=== PATIENT | female | born 1940 | race Caucasian/White ===

== ENCOUNTER 2016-12-23 17:15 | Inpatient (IN) | payer MEDICARE, OTHER ==
[~2016-12-23] VITALS: Ht 163.8 cm; Wt 64.6 kg
--- NOTE | ~2016-12-23 | HP ---
PATIENT'S NAME: CECILE [facility] AGE: 76 Y [address] ROOM: G6302 [place], [place] [address] LOCATION: GPCU ADMIT DATE: 12/23/2016 History & Physical DISCHARGE DATE: FAMILY PHYSICIAN: Adebayo Boggs PA-C ATTENDING PHYSICIAN: DORETHA MALLOY V DATE OF SERVICE: CHIEF COMPLAINT: Left-sided chest pain. HISTORY OF PRESENT ILLNESS: The patient is a 76-year-old female, who came into the ER today with complaints of approximately 2 weeks of left-sided sharp chest pain. The pain is nonexertional, not relieved with medicines or rest, but does get better with a heat pack. The patient admits to increased dyspnea on exertion, but this has been developing over the course of last year. She also has lost approximately 20 pounds in the last year. She also has been getting worked up for back pain as well as syncope associated with postural changes of her head. She has had an MRI of brain and total spine in [place], which we do not have and apparently has a compression fracture and a questionable cervical radiculopathy. In the ER, the patient was noted to be hypertensive with blood pressures of systolic 180, started nitroglycerin drip. The remainder of the workup was negative. REVIEW OF SYSTEMS: Review of systems is also positive for alternating diarrhea and constipation. All other systems have been reviewed and negative aside from the pertinent positives mentioned above. PAST MEDICAL HISTORY: As reported by the patient is of stress incontinence. She denies any cardiac, pulmonary, or endocrine medical history. CURRENT MEDICATIONS: 1. Trospium. 2. Tramadol. 3. Alendronate. SOCIAL HISTORY: Negative for any history of ongoing toxic habits. She resides at home with PATIENT'S NAME: [facility] AGE: 76 Y [address] ROOM: G[address] [place], [place] [address] LOCATION: GPCU ADMIT DATE: 12/23/2016 History & Physical DISCHARGE DATE: FAMILY PHYSICIAN: Adebayo Boggs PA-C ATTENDING PHYSICIAN: DORETHA MALLOY V her . FAMILY HISTORY: Reviewed and is noncontributory due to her advanced age. PHYSICAL EXAMINATION: VITAL SIGNS: At this point, blood pressure is 180/77, saturating 98% on room air, heart rate is 79, afebrile, respirations of 16. GENERAL: Appears elderly frail female, in no acute distress. NEUROLOGIC: Nonfocal. EYES: Show pupils are equal and reactive to light. LYMPHATIC: Shows no cervical lymphadenopathy. ENDOCRINE: Shows no thyromegaly. LUNGS: Clear to auscultation. HEART: Rate is regular with no appreciable murmurs, gallops, or rubs. THORAX: Does reveal tenderness to palpation of her left anterior hemithorax. GI: Abdomen is soft, nontender, nondistended. : Reveals no costovertebral angle tenderness. VASCULAR: Shows 2+ pedal pulses. MUSCULOSKELETAL: Unremarkable. PSYCHIATRIC: Reveals appropriate mood, cognition, and affect. SKIN: Warm and dry. LABORATORY DATA: Studies performed in the ER are significant for an EKG, which shows sinus rhythm at 77 beats per minute with slightly peaked R-waves in leads V1 and V2. Lab studies are significant for creatinine of 1.3. Two sets of negative cardiac enzymes. Unremarkable CBC. Negative D-dimer. ASSESSMENT AND PLAN: This is a 76-year-old female, who will be admitted with: 1. Noncardiac chest pain: I believe she might have some costochondritis. We will treat her with very gentle doses of naproxen and a lidocaine patch. Given the fact that she is elderly and female and has not had a cardiac workup, we will get a 2-dimensional echocardiogram given her reported dyspnea on exertion and a stress test given that she has never had one to eliminate the cardiac etiology as being responsible for her presentation. 2. Accelerated hypertension: We will start the patient on metoprolol. I will discontinue her nitroglycerin as she is having considerable amount of headaches. If need be, we might have to add an additional agent, though the patient has not had hypertension in the past. 3. Neurologic postural syncope: The patient is getting worked up for this as an outpatient, but we will consider an inpatient workup. PATIENT'S NAME: RAFITA HUBER [facility] AGE: 76 Y [address] ROOM: [address] [place], [place] [address] [facility] ADMIT DATE: 12/23/2016 History & Physical DISCHARGE DATE: FAMILY PHYSICIAN: Adebayo Boggs PA-C ATTENDING PHYSICIAN: DORETHA MALLOY V Additional management will depend on clinical course. Time dedicated to this patient's encounter is 35 minutes. MD HARSH TALLEY/christofer /[id number] D: [id number] T: [id number] HISTORY & PHYSICAL
--- NOTE | ~2016-12-23 | CON ---
[facility] 76 Y [address] ROOM: [place] [address] LOCATION: GPCU ADMIT DATE: 12/25/2016 Consultation DISCHARGE DATE: FAMILY PHYSICIAN: Adebayo Boggs PA-C ATTENDING PHYSICIAN: DORETHA MALLOY V DATE OF CONSULTATION: 12/24/2016 REFERRING PHYSICIAN: QING LAL MD NEUROLOGY CONSULTATION NOTE CHIEF COMPLAINT: Thoracic back pain,and acute T8 compression fracture. HISTORY OF PRESENT ILLNESS: The patient is a 76-year-old female patient, who was admitted to the Hospitalist last night with a sharp left-sided chest pain. I met the patient in the PCU unit. I gathered the history from the patient herself. The patient indicated that her pain started about 2 to 3 weeks ago. She denied any history of trauma prior to the onset of the pain. She localized the pain to the mid/lower thoracic region. She indicated that she also feels pain along the left side of her chest and all the way around to the epigastric region. Because of the pain, the patient was admitted to the hospital to rule out coronary artery disease. She was investigated for that and nothing was found. The patient had an MRI of her spine done on 12/16/2016 in [place] and that showed evidence of an acute T8 compression fracture. The patient denied numbness in her lower extremities. She reported numbness in her hands especially at night. She also reported occipital headaches. She denied changes in her bladder and bowel functions. She denied weight loss, loss of appetite, fever, or chills. The patient had issues with low back pain for many years. She denied experiencing similar pain in the past. PAST MEDICAL HISTORY: Stress incontinence. Otherwise, the past medical history is noncontributory to the patient's presentation. REVIEW OF SYSTEMS: All points of the review of systems were asked about. Pertinent positives were mentioned in the HPI. MEDICATIONS: Listed in the patient's chart. ALLERGIES: LISTED IN THE PATIENT'S CHART. [facility] 76 Y [address] ROOM: [place] [address] LOCATION: GPCU ADMIT DATE: 12/25/2016 Consultation DISCHARGE DATE: FAMILY PHYSICIAN: Adebayo Boggs PA-C ATTENDING PHYSICIAN: DORETHA MALLOY V SOCIAL HISTORY: She denies smoking and alcohol drinking. FAMILY HISTORY: Reviewed and is noncontributory to the patient's presentation. PHYSICAL EXAMINATION: GENERAL: The patient is cooperative and pleasant. HEENT: Head; atraumatic. Pupils are equal and reactive to light. NECK: No tenderness to palpation. Neck range of motion is full and painless. BACK: No obvious deformity. She has moderate tenderness to palpation at T8- T9 junction. RESPIRATORY: She is not in any respiratory distress. CARDIOVASCULAR: She has strong pulses in the upper and lower extremities. MUSCULOSKELETAL: The hips range of motion is painless bilaterally. MOUTH AND THROAT: No mucosal lesions. LYMPHATIC: No cervical lymphadenopathy. GAIT: Not done. NEUROLOGIC: She is alert and oriented to time, place, and person. Cranial nerves examination is grossly normal. Motor and sensory examination in the upper and lower extremities was normal. She had positive Cherry on the right hand. No evidence of clonus. Deep tendon reflexes were slightly brisk in the upper and lower extremities. IMAGING DATA: Investigations: 1. Thoracic spine MRI done on 12/16/2016 at [facility]. I personally reviewed the images. The imaging showed evidence of acute T8 compression fracture. No evidence of spinal cord compression or stenosis. 2. Cervical spine MRI done on December 16 at [facility]. I personally reviewed the imaging. The imaging showed a diffuse degenerative joint disease throughout the cervical spine especially at C4- C5, C5-C6 levels. She has mild cervical stenosis at those two levels. The upper cuts of the MRI showed evidence of possibly right internal carotid artery aneurysm. 3. Lumbar spine MRI. I personally reviewed the MRI that was done on December 16. It showed maintained lumbar lordosis. It showed evidence of multilevel degenerative joint disease especially at L4-L5, and L5-S1 levels. It also showed L4-L5, L5-S1 facet arthropathies. It also showed right L5 foraminal stenosis. IMPRESSION AND PLAN: A 76-year-old female patient who is admitted under the Hospitalist with PATIENT'S NAME: RAFITA HUBER [facility] AGE: 76 Y [address] ROOM: [place] [address] LOCATION: GPCU ADMIT DATE: 12/25/2016 Consultation DISCHARGE DATE: FAMILY PHYSICIAN: Adebayo Boggs PA-C ATTENDING PHYSICIAN: DORETHA MALLOY V [id number] lower thoracic back pain. Her imaging showed evidence of acute T8 compression fracture. The patient's daily functioning is significantly limited due to pain. She is unable to walk as before because of pain. She had an MRI of her spine done on December 16 and that confirmed the fracture. The MRI of her cervical spine also showed suspicious right internal carotid artery aneurysm. Plan: 1. For the T8 compression fracture, I recommended proceeding with T8 kyphoplasty to try to control her pain and relieve her symptoms. I briefly discussed the procedure. I clearly indicated that it will be done by Interventional Radiology. I scheduled the procedure on 12/28/2016. 2. For the possible right internal carotid artery aneurysm, I recommended getting a formal CT angiogram of the brain to better assess that. I will review the imaging and discussed the findings with the patient. 3. Flexeril 10 mg p.o. every 8 hours as needed. 4. Keep the systolic blood pressure less than 150. I discussed the findings of the imaging with the patient and explained the findings to her. I then discussed the different treatment options for the T8 compression fracture including continuing medical treatment versus proceeding with kyphoplasty. I recommended kyphoplasty to the patient. The patient was interested in proceeding with the procedure. The procedure is scheduled on 12/28/2016. I also discussed the issue of the possible right internal carotid artery aneurysm. I clearly indicated that further imaging is required to better assess that. I also recommended better controlling the blood pressure. It was pleasure taking care of this patient and thanks for having us involved. MD LOLITA QUINONEZ/christofer /[id number] CC: LASHELL Martinez MD Dr Oladeji d: 12/25/16 1223 t: 12/26/16 1244, CONSULTATION REPORT
--- NOTE | ~2016-12-23 | DS ---
PATIENT'S NAME: RAFITA HUBER [facility] AGE: 76 Y [address] ROOM: [address] [address] LOCATION: GPCU ADMIT DATE: 12/25/2016 Discharge Summary DISCHARGE DATE: 12/25/2016 FAMILY PHYSICIAN: Adebayo Boggs PA-C ATTENDING PHYSICIAN: Gagandeep Joy V DATE OF DISCHARGE/TRANSFER TO [facility]: December 25, 2016. PRIMARY DIAGNOSES: 1. Thoracic T8 compression fracture with radicular pain. 2. Left-sided chest radicular pain. 3. Right IC aneurysm. 4. Essential hypertension. LABORATORY DATA: Cardiac enzymes 3 sets less than 0.040. WBC on admission was 4.2. H and H on admission was 10.5, prior to transfer was 10.3/30.7. Sodium on admission was 138, prior to discharge 140. Creatinine on admission was 1.3, prior to discharge was 1.1. CO2 was stable throughout the hospital stay at 27. Potassium was 4.2 on admission, prior to transfer was 4.0. Liver function test was within normal limit, was also stable throughout the hospital stay. ESR was 58. INR 1.0. UA shows leukocytes 25, nitrite negative, wbc's 5 to 10, and bacteria negative. Micro, none was indicated. Echocardiogram showed ejection fraction of 55%, left ventricle is normal in size, left atrium is mildly dilated, mild tricuspid regurgitation, PA pressure of 46. Nuclear stress test reported as small distal anteroseptal moderate fixed defect most consistent with soft tissue attenuation, normal wall motion. RADIOLOGY: Chest x-ray showed normal chest. CTA of the head showed aneurysm of the supraclinoid right ICA. HOSPITAL COURSE: For history of present illness, please take a look at the H and P, which was done by Dr. Joy. The patient was admitted to Progressive Care Unit for a presumptive atypical chest pain, however, after further history was obtained from the patient and we obtained old records which included MRI of the neck and lumbar which was done 1 week prior to the patient's admission here at [facility], it was revealed on the MRI report that the patient had an acute T8 fracture with surrounding edema. So, line of thought was probably the patient's left-sided chest pain may be secondary to radicular pain. On the first day of admission, the patient did get her stress test done, which was essentially negative except for the attenuation it showed and after I discussed case with Dr. Joy, he recommended if the patient's chest pain persisted that the patient may benefit from a coronary angiogram to just evaluate her. Though, at this point in time, we thought likely the patient's left-sided chest pain was secondary to her T8 compression fracture. Following the result of the compression PATIENT'S NAME: RAFITA HUEBR [facility] AGE: 76 Y [address] ROOM: [address] [place], [place] [address] [facility]: 12/25/2016 Discharge Summary DISCHARGE DATE: 12/25/2016 FAMILY PHYSICIAN: Adebayo Boggs PA-C ATTENDING PHYSICIAN: Gagandeep Joy, Dr. Navarrete, the spine surgeon, was called to evaluate the patient; and after he reviewed the images of the cervical MRI and the lumbar, he observed that the patient may also likely have an aneurysm and so we went ahead to do a CTA of the head and neck, which did confirm the right IC aneurysm. Prior to this result being obtained, plan was to keep the patient's systolic blood pressure less than 150, which was achieved. After Dr. Navarrete reviewed the results of the CTA of the head and neck, he decided to go ahead and touch base with the neurosurgeon at [facility] for possible transfer and he took care of the transfer and discussed the case with a receiving doctor and the patient was subsequently transferred to [facility]. By the next day of the hospital stay, the patient's left-sided chest pain had resolved. MEDICATIONS ON TRANSFER: Included: 1. Norvasc 2.5 mg p.o. q.h.s., new medication. 2. Cefazolin. 3. Nystatin to breast. 4. Oxycodone 5 mg q.6 hours p.o. p.r.n. 5. Chlorthalidone, new medication, 25 mg p.o. daily. 6. Flexeril 10 mg q.8 hours p.o. p.r.n. 7. IV hydralazine 10 mg q.2 hours p.r.n. 8. Morphine 0.5 mg q.2 hours IV p.r.n. 9. Magnesium hydroxide 30 mL p.o. daily p.r.n. 10. MiraLax 17 grams p.o. daily p.r.n. 11. Colace 100 mg b.i.d. p.o. p.r.n. 12. Tramadol 50 mg q.4 hours p.o. p.r.n. 13. Vitamin B12, 500 mcg p.o. daily. 14. Metoprolol 25 mg b.i.d. p.o. MD MELCHOR COREA/christofer /[id number] d: 12/26/165 t: 01/02/172052, DISCHARGE SUMMARY
--- NOTE | ~2016-12-23 | ECHO ---
Transthoracic Echocardiography Report (TTE) Demographics Patient Name RAFITA HUBER Date of Study 12/24/2016 Patient Number [id number] Visit Number [id number] Date of 1940 Room Number G6302 Gender Female Number Age 76 year(s) Referring Ambrose CLEMENTS Contact Worker Elizabeth Chowdary Physician Rufino Faith RVT, MD Physician Interpreting Leni Dang Sample Maker Original Physician MD Supervising Ordering Rufino Tillman MD/MLP Physician MD Nurse Stress Molder Apprentice Conclusions Contractility Score Summary Normal Left Ventricular contractility was noted. Summary The estimated left ventricular ejection fraction is 55% with normal WM and wall thickness.The left ventricle is normal in size . The left atrium is mildly dilated. Moderate mitral regurgitation by color Doppler. There is trivial aortic regurgitation by color Doppler. Increased RA pressures. Mild tricuspid regurgitation by color Doppler. There is moderate pulmonary hypertension. The pulmonary pressure (RVSP) is 46 mmHg. [place]. Procedure Type of Study TTE procedure:2D Echocardiogram, M-Mode, Doppler , Color Doppler. Procedure Date Date: 12/24/2016 Start: 06:53 AM Study Location: Inpatient Portable Technical Quality: Adequate visualization Indications:Chest pain and Dyspnea. Appropriate Use Criteria: 9 Patient Status: Routine HR: 62 bpm BP: 137/64 mmHg M-Mode/2D Measurements LV Diastolic Dimension: 4.56 cm LV Systolic Dimension: 3.22 cm LV Septum Diastolic: 0.84 cm LV PW Diastolic: 0.94 cm AO Root Dimension: 2.6 cm Cardiac Output: 3.44 l/min AV Cusp Separation: 1.8 cm RV Diastolic Dimension: 2.01 cm LA volume: 61 ml LVOT: 1.9 cm RV Base: 3.67 cm LVOT VTI: 19.6 cm RV Mid: 2.61 cm LV Stroke volume: 55.54 ml TAPSE: 2.5 cm TDI-S': 11.1 cm/s Doppler Measurements AV Peak Velocity: 1.17 m/s MV Peak E-Wave: 0.69 m/s AV Peak Gradient: 5.48 mmHg MV Peak A-Wave: 0.98 m/s AV Mean Gradient: 3 mmHg MV E/A Ratio: 0.71 LVOT Peak Velocity: 0.72 m/s MV P1/2t: 66 msec TR Gradient:37.95 mmHg PV Peak Velocity: 0.72 m/s Estimated RAP:8 mmHg PV Peak Gradient: 2.04 mmHg Estimated RVSP: 46 mmHg Estimated PASP: 45.95 mmHg E' Septal Velocity: 0.05 m/s A' Septal Velocity: 0.11 m/s E' Lateral Velocity: 0.06 m/s A' Lateral Velocity: 0.09 m/s Findings Left Ventricle The left ventricle is normal in size,EF,WM and wall thickness. Right Ventricle Normal right ventricle structure and function. Left Atrium The left atrium is mildly dilated. Right Atrium Normal right atrial size. Dilated IVC measuring 2.07 cm with poor inspiratory collapse consistent with elevated RA pressure. Mitral Valve Mild thickening of the mitral valve leaflets. Moderate mitral regurgitation by color Doppler. Aortic Valve The aortic valve is mildly sclerotic. There is trivial aortic regurgitation by color Doppler. Tricuspid Valve Normal tricuspid valve structure and function. Mild tricuspid regurgitation by color Doppler. There is moderate pulmonary hypertension. The pulmonary pressure (RVSP) is 46 mmHg. Pulmonic Valve Normal pulmonic valve structure and function. Mild pulmonic valve regurgitation by color Doppler. Pericardial Effusion No evidence of pericardial effusion. Miscellaneous Visualized portions of the aortic root and ascending aorta appear normal in size. Pleural Effusion No evidence of pleural effusion. Contractility Score LV regional wall motion:(0-Non visualized 1-Normal 2-Hypokinesis 3-Akinesis 4-Dyskinesis 5-Aneurysm) Signature dtt: Laurence Farrar dtd: 12/24/16 0653 Physician Self Edit
--- NOTE | ~2016-12-23 | ESTC ---
Cardiac Perfusion Imaging Demographics Patient Name CECILE Moeller Gender Female Patient Number [id number] Race Visit Number [id number] Ethnicity Corporate ID Room Number G6302 Accession Number [id number] Height 65 inches Date of 1940 Weight 141 pounds MD Dev CLEMENTS Interpreting Leni Dang Date of study 12/24/2016 Physician MD Supervising /AMBER DAVIS Technologist Cesar Nunez Ordering Physician Stress Cristian Ahumada guitar repair technician RDCS, RVT Stress ECG Reading Guerita Corcoran APRN Nurse Caleb Knight RN Physician Procedure Procedure Type: Nuclear Stress Test:Pharmacological, Cardiolite Stress Test Procedure Start time: 12/24/2016 11:00 Indications: Chest pain. Risk Factors The patient risk factors include:family history of premature CAD. Conclusions Summary Small distal anteroseptal moderate fixed defect most consistent with soft tissue attenuation. LVEF:70%. Normal WM. Stress Protocols Resting ECG Normal sinus rhythm. Pre-stress physical exam: Patient assessed by Linda BRANHAM prior to testing. Chest - CTA Cardio - RRR, S1, S2 Predicted HR: 144 bpm HR response: Appropriate BP response: Appropriate Reason for termination:Infusion complete ECG Findings No ECG changes suggestive of ischemia. Arrhythmias No rhythm abnormality. Symptoms Nausea. Complications Procedure complication: None. Stress Interpretation Appropriate hemodynamic response to Lexiscan. No significant ST-T wave changes with Lexiscan. ECG portion is negative for ischemia by diagnostic criteria. Will correlate with nuclear images. Imaging Results High risk findings Summed scores - Summed stress score: 12 - Summed rest score: 2 - Summed difference score: 10 Stress ejection Ejection fraction:69 % EDV :85 ml ESV :26 ml Stroke volume :59 ml LV mass :120 gr LV size:Normal Normal LV function Imaging Protocols Rest Stress Isotope:Tc99m Sestamibi IV Isotope: Tc99m Sestamibi IV Isotope dose:10.1 mCi Isotope dose:30.2 mCi Date:12/24/2016 08:34 Date:12/24/2016 11:07 Technique: SPECT Technique: Gated Supine SPECT Supine Scan Time:45-60 minutes post Scan Time:45-60 minutes post injection injection Procedure Medications - Regadenoson (Lexiscan) 0.4 mg IV over 10-15 sec. I.V. 0.4 mg. Medical History Admission Data Admission date: 12/23/2016 Admission Time: 19:58 Hospital Status: Inpatient. Signatures dtt: Laurence Farrar dtd: 12/24/16 [facility] Physician Self Edit
--- NOTE | ~2016-12-23 | ER ---
PATIENT'S NAME: RAFITA HUBER [facility] AGE: 76 Y [address] ROOM: [address] [address] [facility] AD[facility]: 12/23/2016 ER/Outpatient Report DISCHARGE DATE: FAMILY PHYSICIAN: Adebayo Boggs PA-C ATTENDING PHYSICIAN: DORETHA MALLOY V Time of Arrival: 1715 hours. Time of Evaluation: 1720 hours. HISTORY OF PRESENT ILLNESS: This is a 76-year-old female, who presents to the ER via ambulance to our emergency room. The patient was evaluated in [facility] by TYREE Figueroa. She is having complaints of chest pain for the past 2 weeks' time. When she was there, he did do an EKG and thought she had some ischemic changes, so he wanted her transferred here for further care. The patient states that she has had no recent illness. No fever or chills. She states that her pain is always there, but the intensity waxes and wanes. She states that it does not make her feel nauseated. She has had no shortness of breath. She does have some chest wall tenderness as well with this. The patient denies any cardiac history. No vomiting or diarrhea. The patient is allergic to aspirin, so they did not give her any aspirin but they did give her a nitroglycerin at the clinic and then the ambulance did repeat that which did improve her pain. Due to shift change, I will be turning this patient's care over to Jocelyne [place]. Please see her dictation for the rest of the report. ANA GONG PA-C FOR MD JOHNNY SANTORO/christofer /[id number] d: 12/24/16654 t: 12/29/16653, OUTPATIENT REPORT
--- NOTE | ~2016-12-23 | ER ---
PATIENT'S NAME: RAFITA HUBER [facility] AGE: 76 Y [address] ROOM: [place] [address] LOCATION: GPCU ADMIT DATE: 12/23/2016 ER/Outpatient Report DISCHARGE DATE: FAMILY PHYSICIAN: Adebayo Boggs PA-C ATTENDING PHYSICIAN: DORETHA MALLOY V TIME SEEN: 1800 hours. CHIEF COMPLAINT: Chest pain. HISTORY OF PRESENT ILLNESS: I actually assumed care of this patient about 45 minutes after her arrival in the emergency room. She is here for complaints of chest pain that she has had for about 2 weeks. She describes it as a spot on the top side of her left breast with it radiating around to the area below her scapula on the left. She states this pain has been constant for the past two weeks. At times it is worse than others but not necessarily with any activity. At the time of the exam, it did increase with deep breath and with any palpation at all in that area. She describes the pain as being sharp in nature. She has had no trauma. She was seen in [place] by TYREE Figueroa and he recommended she come down for cardiac work up. She was transferred by ambulance. PAST MEDICAL HISTORY: Arthritis, bladder control problem. PAST SURGICAL HISTORY: Noncontributory. ALLERGIES: SULFA AND ASPIRIN. HOME MEDICATIONS: Include: 1. Tramadol. The patient reports she very rarely takes tramadol; however, she has been taking it pretty regularly in the last two weeks due to the pain in her chest. 2. Trospium chloride one tablet daily. 3. Alendronate 70 mg one per week. 4. She also takes B12 500 mcg. REVIEW OF SYSTEMS: GENERAL: No change in her weight. No fevers, chills, or sweats. She does state that she has been somewhat fatigued of late. PATIENT'S NAME: RAFITA HUBER [facility] AGE: 76 Y [address] ROOM: [place] [address] LOCATION: GPCU ADMIT DATE: 12/23/2016 ER/Outpatient Report DISCHARGE DATE: FAMILY PHYSICIAN: Adebayo Boggs PA-C ATTENDING PHYSICIAN: DORETHA MALLOY V HEENT: No headache. No vision changes. No recent congestion or sore throat. CARDIOVASCULAR: Chest pain as previously described and shortness of breath. At times she feels that she is short of breath as it is painful for her to take a deep breath. GASTROINTESTINAL: No nausea, vomiting, diarrhea, or constipation. : No urgency, frequency, or dysuria. NEURO: No confusion, weakness, or dizziness. MUSCULOSKELETAL: No myalgias or arthralgias. HEMATOLOGY: No new bruising or bleeding. SKIN: She denies any rashes or lesions. ENDOCRINE: No complaints. PSYCH: No complaints. PHYSICAL EXAMINATION: VITAL SIGNS: Pulse of 80, respiratory rate 16, temperature 98.4, blood pressure 185/81. GENERAL APPEARANCE: She is alert, pink, warm, and dry. No acute distress. HEENT: Head, normocephalic. Eyes, PERRL. Ears not examined. Nose not examined. Throat not examined. NECK: Supple with no lymphadenopathy. LUNGS: Clear to anterior and posterior auscultation without any wheezes or crackles. Respiratory effort is normal. HEART: Rate is regular. Normal S1, S2. No murmurs noted. CHEST: Tender to palpation at approximately the 4th rib, superior border of the left breast radiating around to the 4th and 5th rib area in the axilla. She says this pain at times hurts subscapular; however, there is no tenderness to palpation in that area. There are two small red lesions noted in this area on the breast. They do not at this time appear to be herpetic. The patient states she has been using a heating pad to her chest. These do not appear to be dwyer from a heating pad either. ABDOMEN: Soft, nontender, and nondistended. Bowel sounds in all 4 quadrants. No masses or organomegaly. EXTREMITIES: No peripheral edema. She has full range of motion of all extremities. Cap refill is less than 2 seconds. NEUROLOGICAL: Cranial nerves 2 through 12 are intact. Motor strength 5/5 bilaterally. LABORATORY DATA: White count of 4.2, hemoglobin 10.5, hematocrit 31.3, platelet count 223. INR 1.0. Sodium 138, potassium 4.2, glucose 91, BUN 23, creatinine 1.3, magnesium 2.0. CK-MB is less than 0.5. Troponin I is less than 0.04. D-dimer 0.33. EKG without any evidence of acute process. IMPRESSION/ASSESSMENT: Left-sided chest pain. Rule out myocardial infarction. Rule out shingles. PATIENT'S NAME: RAFITA HUBER [facility] AGE: 76 Y [address] ROOM: [id number] [place], [place] [address] [facility] ADMIT DATE: 12/23/2016 ER/Outpatient Report DISCHARGE DATE: FAMILY PHYSICIAN: Adebayo Boggs PA-C ATTENDING PHYSICIAN: DORETHA MALLOY V Possible costochondritis. EMERGENCY DEPARTMENT COURSE: The patient was given a sublingual nitroglycerin early in her visit and the pain was somewhat better shortly after that. Therefore, nitroglycerin drip was started and after a period of time, her pain escalated. So it was increased from 5 mcg to 10 mcg. The dose did not help the pain. She stated the pain was becoming worse and she also had a headache. Therefore, the nitroglycerin was decreased again and she was given fentanyl for her chest pain. As mentioned in HPI, her pain remained present at all times and did escalate at times and then decrease again. DISPOSITION/PLAN: Dr. Garcia was contacted and will admit the patient for rule out [place], observation. This case was discussed with Dr. Victoria as well. In addition, [place] CLEMENTS saw the patient initially when she came to the emergency room. VICTORIA GARCIA APRN FOR LENORA VICTORIA MD DP/cindil /[id number] d: 12/24/16 0526 t: 01/13/17 0701, OUTPATIENT REPORT
[2016-12-23 17:50] LABS: BASOPHIL % 0.5 %; EOSINOPHIL # 0.1 K/uL (0.0-0.5); EOSINOPHIL % 3.3 %; HEMATOCRIT 31.3 % (33.0-46.0); HEMOGLOBIN 10.5 g/dL (10.0-15.0); IMMATURE GRANULOCYTE % 0.5 %; LYMPHOCYTE % 48.1 %; MCH 34.7 pg (27.0-34.0); MCHC 33.5 gm/dL (32.0-36.5); MCV 103.3 fl (83.0-98.0); MONOCYTE # 0.4 K/uL (0.0-1.0); MONOCYTE % 10.2 %; MPV 10.5 fl (9.4-12.4); NEUTROPHIL # (ANC) 1.6 K/uL (1.8-7.8); NEUTROPHIL % 37.4 %; NRBC % 0 /100WBC (0-0.00); PLATELET COUNT 223 K/uL (150-450); RBC 3.03 M/uL (3.50-5.50); RDW-CV 12.8 % (11.9-14.6); WBC 4.2 K/uL (4.0-11.0)
[2016-12-23 17:56] LABS: PROTIME 10.3 SECONDS (9.6-11.1); PTT 27 SECONDS (25-32)
[2016-12-23 18:10] LABS: ALBUMIN 3.9 gm/dL (3.5-5.0); ALK PHOS 86 IU/L (33-138); ALT 12 IU/L (12-78); ANION GAP 13.2 (10.0-19.0); AST 18 IU/L (10-40); BLOOD UREA NITROGEN 23 mg/dL (6-24); CALCIUM 8.9 mg/dL (8.5-10.5); CHLORIDE 102 mMol/L (96-110); CO2 27 mMol/L (22-32); CPK 31 IU/L (21-215); CREATININE 1.3 mg/dL (0.5-1.1); ESTIMATED GFR (MDRD EQUATION) 40; POTASSIUM 4.2 mMol/L (3.7-5.1); SODIUM 138 mMol/L (135-145); TOTAL BILIRUBIN 0.4 mg/dL (0.0-1.5); TOTAL PROTEIN 7.6 g/dL (6.0-8.4)
[2016-12-23 20:01] LABS: CPK 35 IU/L (21-215)
--- NOTE | 2016-12-23 21:28 | NUR ---
76 Y/O FEMALE ADMITTED FOR CHEST PAIN RULE OUT TX. C/O CHEST PAIN FOR THE PAST 2 WEEKS UNDER LEFT BREAST THAT IS A SHARP SQUEEZING PRESSURE NOT R/T ACTIVITY. ALSO C/O SOB DURING THE PAST 2 WEEKS WELL. ALLERGIES - SULFA & ASPIRIN MEDICAL HISTORY - CLAUSTROPHOBIC, ARTHRITIS, OSTEOPORSIS, DEPRESSION & ANXIETY, CHRONIC LOW BACK PAIN AND NECK PAIN, [place] WITH BILAT HEARING AIDS. PT STATES SHE HAS HAD MANY SYNCOPAL EPISODES AND FALLS OFTEN, STATES HER LAST FALL WAS APPROX 2 WEEKS AGO. FREQUENT HEADACHE, LIGHT HEADED OFTEN, STRESS URINARY INCONTINANCE, IBS. SURGICAL HISTORY - APPY, BRICE, REMOVAL OT TUMOR ON RT FOOT, COLONOSCOPY X2, RT SHOULDER ROTATOR CUFF, RT ING HERNIA REPAIR, T&A, BILAT LASIK & CATARACT W/ IOLI, EGD W/ BIOPSY, D&C. REPORT GIVEN TO PT PRIMARY CARE NURSE TRAMAINE RN ADM EDUCATION DEPARTMENT STORE GENERAL MANAGER LIGHT DONE BUT PT C/O SEVERE HEADACHE & NECK PAIN AND NOT INTERESTED IN MORE EDUCATION AT PRESENT TIME.
[2016-12-23] MEDS ORDERED: ULTRAM50 MG PO (23:18)
[2016-12-23] MEDS ORDERED: FOSAMAX70 MG PO (23:19)
[2016-12-23] MEDS ORDERED: SANCTURA 20MG20 MG PO (23:19)
[2016-12-23] MEDS ORDERED: VITAMIN B-121000 MCG PO (23:20)
[2016-12-24 00:44] LABS: BILIRUBIN URINE NEGATIVE (NEGATIVE); BLOOD URINE NEGATIVE /UL (NEGATIVE); COLOR URINE YELLOW (YELLOW); GLUCOSE URINE NEGATIVE (NEGATIVE); KETONE URINE 15 mg/dL (NEGATIVE); LEUKOCYTES URINE 25 /UL (NEGATIVE); NITRITE URINE NEGATIVE (NEGATIVE); PH URINE 6.5 (4.0-8.0); PROTEIN URINE NEGATIVE (NEGATIVE); TURBIDITY URINE CLEAR (CLEAR); UROBILINOGEN URINE NORMAL (NORMAL)
[2016-12-24 00:53] LABS: BACTERIA URINE NEGATIVE (NEGATIVE); EPITHELIAL URINE 0-2 #/HPF (NEGATIVE); RBC URINE NEGATIVE #/HPF (NEGATIVE)
[2016-12-24 03:56] LABS: ALBUMIN 3.7 gm/dL (3.5-5.0); ALK PHOS 76 IU/L (33-138); ALT 11 IU/L (12-78); AST 17 IU/L (10-40); CPK 35 IU/L (21-215)
[2016-12-24 03:59] LABS: TOTAL BILIRUBIN 0.5 mg/dL (0.0-1.5)
--- NOTE | 2016-12-24 04:48 | NUR ---
Significant Event: A/O x3. Afebrile. complained of headache around 2100, gave tylenol 650mg. Headache now 01/08. Denies chest pain. Last BP 137/ 64. RA. LS clear/dim. Up standby assist. High fall risk due to history of syncopal episodes. Follow up: Echo, stress test in am. Continue to monitor per plan of care.
--- NOTE | 2016-12-24 11:05 | NUR ---
D:Pateient taken for stress test per wheelchair at 0900.
[2016-12-24] MEDS ORDERED: FLONASE 50 MCG/16 GM NOSE (11:48)
--- NOTE | 2016-12-24 12:26 | NUR ---
Introduced self and role of care management to patient and her . They live in [place]. She states that she is normally able to do all her own ADL's. Her is available to assist as needed. I did explain that she is OBSERVATION status at this time and what that all entails. Questions asked and answered. Patient plans on returning home on discharge. Denies any needs at this time. Will continue to follow.
--- NOTE | 2016-12-24 17:10 | NUR ---
Significant Event:Patient had stress test today. Has had some c/o pain/burning in left side, under left breast. Refused the stool softners and laxatives that were ordered, reports that she had a good BM before her stress test. Dr. Navarrete to see patient. Follow up:Stress test results
[2016-12-25 04:45] LABS: HEMATOCRIT 30.7 % (33.0-46.0); HEMOGLOBIN 10.3 g/dL (10.0-15.0)
[2016-12-25 05:03] LABS: CALCIUM 8.9 mg/dL (8.5-10.5); CREATININE 1.1 mg/dL (0.5-1.1); MAGNESIUM 2.2 mg/dL (1.3-2.6)
--- NOTE | 2016-12-25 05:59 | NUR ---
Significant event: A/O x 3. C/O right sided pain. Gave [place] and morphine with a warm pack, patient pain level tolerable. patient to have CT angio of brain this am. called with GFR of 48 no orders given. doctor thought patient would tolerate. Gave hydralazine x 1 for SBP greater than 150. Blood pressures came down to 110's after.
--- NOTE | 2016-12-25 14:50 | NUR ---
D:Dr. Will into see patient, talked with patient and son about CT results. Dr. Navarrete will be over later to talk with them about a possible transfer to [place] to fix anuerysm. Dr. Will here about 1430. Patient denies any pain. More family has arrived. P:Monitor BP and await Dr. Navarrete
--- NOTE | 2016-12-25 17:16 | NUR ---
Significant Event:Patient had CTA of head today, does show aneurysm. Patient and family waiting for Dr. Navarrete to let them know what the plan is. Has not had any left sided pain all day till 1630, Tylenol given. Had Oxycodone earlier for headache. Has Bicarb running per protocol, when done start NS at 50 ml/hr. We are to keep SBP<150, had hydrazaline once today at 1500, SBP down to 138. Start Norvasc tonight. Kypoplasty scheduled for Wednesday at 1500 at this time. Started on Nystatin for rash on left breast. Follow up:Waiting for Dr. Navarrete, possible transfer to [place].
--- NOTE | 2016-12-25 22:01 | NUR ---
Dr. Navarrete rounded at about 1830 to speak to patient and her family regarding need for transfer to [facility]. Paperwork completed. Patient was in stable condition, last set of vital signs on the chart. Lidoderm patch administered around 2019 under left breast, old one removed. Report given to MARTI Badillo from [facility] 6th floor. EMS from [facility] ambulance left [facility] around 2039. Family left with them as well.
== END 2016-12-25 20:40 | disposition hospice, home (50) | DRG 552 ==
LOC: GMED 17:15 → GPCU 19:58
PROVIDERS: Family Medicine; Hospitalist; ADMIT Internal Medicine
DX: S22.060A Wedge compression fracture of T7-T8 vertebra, initial encounter for closed fracture (principal); E87.0 Hyperosmolality and hypernatremia; I72.0 Aneurysm of carotid artery; N18.3 Chronic kidney disease, stage 3 (moderate); N39.3 Stress incontinence (female) (male); R21 Rash and other nonspecific skin eruption; I12.9 Hypertensive chronic kidney disease with stage 1 through stage 4 chronic kidney disease, or unspecified chronic kidney disease
CPT/HCPCS: A9500; G0378; J0360; J2060; J2270; J2785; J3010; J7030; J7060; Q9967

== ENCOUNTER 2017-01-25 12:27 | Observation (INO) | payer MEDICARE, OTHER ==
[~2017-01-25] VITALS: Ht 162.6 cm; Wt 59.6 kg
--- NOTE | ~2017-01-25 | ER ---
PATIENT'S NAME: RAFITA HUBER [facility] AGE: 76 Y [address] ROOM: [place] [address] LOCATION: [facility] ADMIT DATE: 01/25/2017 ER/Outpatient Report DISCHARGE DATE: FAMILY PHYSICIAN: Adebayo Boggs PA-C ATTENDING PHYSICIAN: STEFFI PAREKH Time Seen: 1240 hours. HISTORY OF PRESENT ILLNESS: The patient is a 76-year-old female who was brought in by EMS from [place], [place]. The patient was accompanied by her who states this morning she was confused and anxious. The family evidently called her provider at [place], who advised that she be transported to [facility] in [place]. The patient has complained of some nausea and a slight headache. Family reports that three weeks ago she was transferred from [facility] at [place] for a repair of a cerebral aneurysm. She was then placed in a [facility] following her discharge. The patient was released from the [facility] on Wednesday. ALLERGIES: SEE COPIED LIST. CURRENT MEDICATIONS: See her copied list. MEDICAL HISTORY: Includes some hypertension, degenerative arthritis, claustrophobia. SURGERY: She recently had a back procedure for a compressed vertebrae in her back. Also recent aneurysm repair with coil. Also recently had shingles on her back. SOCIAL HISTORY: She is . Nonsmoker. Denies alcohol. REVIEW OF SYSTEMS: GENERAL: The patient denies any fevers or chills. HEAD/EENT: Has had a slight headache today. She has had some visual changes since her brain surgery. Denied any sore throat or stiff neck. RESPIRATORY: No shortness of breath or cough. CARDIOVASCULAR: No chest pain. No palpitations. GASTROINTESTINAL: Experienced nausea during the last 12 hours. No vomiting. Appetite has not been good. GENITOURINARY: No incontinence of urine or dysuria. PATIENT'S NAME: RAFITA HUBER [facility] AGE: 76 Y [address] ROOM: [place] [address] LOCATION: [facility] ADMIT DATE: 01/25/2017 ER/Outpatient Report DISCHARGE DATE: FAMILY PHYSICIAN: Adebayo Boggs PA-C ATTENDING PHYSICIAN: STEFFI PAREKH MUSCULOSKELETAL: Denies any significant weakness. been does report that she was quite confused this morning. PHYSICAL EXAMINATION: VITAL SIGNS: On exam, her temperature is 97.2, her blood pressure 133/63, her pulse was 83, respiratory rate 16. GENERAL: The patient is somewhat frail 76-year-old, looks somewhat older than her stated age. She was alert to person, place, and time. HEAD/EENT: Vision is corrected. She has had occasional headache. Denies any double vision. RESPIRATORY: Denies cough or shortness of breath. CARDIOVASCULAR: No recent chest pain or palpitations. MUSCULOSKELETAL: Still has some pain in her back. NEUROPSYCH: Confused earlier in the day which has cleared since arrival to the emergency room. DICTATION ENDS HERE. TYREE MORALES FOR MD AMINAH SANTORO/christofer /[id number] d: t: 01/26/17 1022, OUTPATIENT REPORT
--- NOTE | ~2017-01-25 | HP ---
PATIENT'S NAME: [facility] AGE: 76 Y [address] ROOM: [place] [address] LOCATION: [facility] ADMIT DATE: 01/25/2017 History & Physical DISCHARGE DATE: FAMILY PHYSICIAN: Adebayo Boggs PA-C ATTENDING PHYSICIAN: STEFFI PAREKH DATE OF SERVICE: CHIEF COMPLAINT: Confusion. HISTORY OF PRESENT ILLNESS: A 76-year-old lady with a past medical history of hypertension and recent diagnosis of right ICA aneurysm, status post coiling as well as T8 compression fracture, status post kyphoplasty, was admitted through the emergency department with a chief complaint that she has not been feeling well for the past day and a half, mainly consisting of confusion, anxiety, and panic. She did endorse having frontal headache, 6/10, dull in character, nonradiating, relieved with pain medication, not associated with nausea and vomiting. On further inquiry, she did endorse having chest wall pain, which have been going on for many weeks now, not associated with any shortness of breath, leg swelling, orthopnea, or dyspnea. She denied having any diarrhea or any constipation, any burning on urination, did endorse having that a couple of weeks ago, no weakness anywhere in any limb. On further inquiry, she also denied having any hot or cold, any night sweats, any joint tenderness, or swelling. REVIEW OF SYSTEMS: All other systems were reviewed and were negative except what is mentioned in the HPI. PAST MEDICAL HISTORY: Essential hypertension, right ICA aneurysm status post coiling, T8 compression fracture, osteoporosis, urinary incontinence. ALLERGIES: NO KNOWN DRUG ALLERGIES. SOCIAL HISTORY: Negative for any tobacco or alcohol abuse. FAMILY HISTORY: Negative for high blood pressure, diabetes, stroke, or heart attacks. MEDICATIONS: PATIENT'S NAME: [facility] AGE: 76 Y [address] ROOM: [place] [address] LOCATION: [facility] ADMIT DATE: 01/25/2017 History & Physical DISCHARGE DATE: FAMILY PHYSICIAN: Adebayo Boggs PA-C ATTENDING PHYSICIAN: STEFFI PAREKH Being reconciled right now. PHYSICAL EXAMINATION: VITAL SIGNS: 133/68, 72, 12, afebrile. GENERAL: In mild acute distress due to confusion. Alert and oriented x3. HEENT: Head: Atraumatic, normocephalic. Eyes are nonicteric. No pallor. Oropharynx: Dry mucous membranes. CARDIOVASCULAR: S1 and S2. No murmurs, gallops, or rubs appreciated. LUNGS: Clear to auscultation bilaterally. ABDOMEN: Soft, nontender, nondistended. Bowel sounds are present. EXTREMITIES: No clubbing, cyanosis, or edema. MUSCULOSKELETAL: No muscle tenderness or joint swelling noted. NEURO: Cranial nerves 2 through 12 intact. No motor or sensory deficit noted. PSYCH: Flat mood, affect, and speech. SKIN: No bruises, ecchymosis, or rashes noted. IMAGING DATA: CAT scan was done in the emergency department, which per verbal report from the ER provider did not show any acute changes. Lab work including CBC, BMP, and UA in the emergency department was unremarkable except for hemoglobin of 10 with macrocytosis. ASSESSMENT: 1. Acute encephalopathy. 2. Essential hypertension. 3. Right internal carotid artery aneurysm, status post coiling. 4. Recent T8 compression fracture. 5. Urinary incontinence. 6. Osteoporosis. PLAN: Given the data available at this point, history and physical does not point toward a specific etiology of this confusion at this point. We are going to obtain EKG as well as troponin levels to make sure there is no cardiac involvement here. TSH level and B12 as well as folate levels will be obtained. She appears dry on physical examination. I will give her 500 mL of Ringer's lactate as well. She is also on multiple drugs, which could be etiology of this confusion including Percocet, tramadol, as well as gabapentin. Once these medications are reconciled, we will try to reduce the number as well as dosage of these medications. Low-sodium diet. Fall precautions. DVT prophylaxis. SCDs today. The patient is full code. PATIENT'S NAME: RAFITA HUBER [facility] AGE: 76 Y [address] ROOM: [id number] [place], [place] [address] LOCATION: [facility] ADMIT DATE: 01/25/2017 History & Physical DISCHARGE DATE: FAMILY PHYSICIAN: Adebayo Boggs PA-C ATTENDING PHYSICIAN: STEFFI PAREKH MD BRENT JENKINS/christofer /[id number] D: [id number] T: [id number] HISTORY & PHYSICAL
--- NOTE | ~2017-01-25 | ER ---
PATIENT'S NAME: DELL HUBERS Sajan [facility] AGE: 76 Y [address] ROOM: [place] [id number] LOCATION: [facility] ADMIT DATE: 01/25/2017 ER/Outpatient Report DISCHARGE DATE: FAMILY PHYSICIAN: Adebayo Boggs PA-C ATTENDING PHYSICIAN: STEFFI PAREKH Time of Arrival: 1240 hours. HISTORY OF PRESENT ILLNESS: The patient is a 76-year-old female, who was brought in by [place] [facility]. The patient presents complaining of anxiety and nausea. The patient was accompanied by her . His concern was that she seemed very confused this morning. The patient's history includes a recent brain aneurysm repair done in [place] approximately 3 weeks ago. The patient was sent home to a care home in [place] and was discharged on Wednesday. Family also has some concerns of the medications she is on. ALLERGIES: SEE COPIED LIST. CURRENT MEDICATIONS: See her copied list, was reviewed. MEDICAL HISTORY: Anxiety, basically related to claustrophobia; some degenerative arthritis, especially involving her back; recent herpes zoster infection. SURGERIES: Include a brain aneurysm coil, which was done 3 weeks ago. She also had a procedure done on one of her vertebrae in her back. SOCIAL HISTORY: , nonsmoker, denies alcohol use. REVIEW OF SYSTEMS: GENERAL: Denies fever or chills. HEENT: She has had a slight headache today. She has had some problems with her neck recently. Denies sore throat. RESPIRATORY: No shortness of breath or cough. CARDIOVASCULAR: No chest pain. No palpitations. GASTROINTESTINAL: Nausea without any vomiting. No diarrhea or constipation. GENITOURINARY: No incontinence. No dysuria. NEUROLOGIC: Includes recent memory loss and mental confusion. PHYSICAL EXAMINATION: [facility]GE: 76 Y [address] ROOM: [address] [address] LOCATION: [facility] ADMIT DATE: 01/25/2017 ER/Outpatient Report DISCHARGE DATE: FAMILY PHYSICIAN: Adebayo Boggs PA-C ATTENDING PHYSICIAN: STEFFI PAREKH VITAL SIGNS: Temperature is 97.2, respiratory rate 16, pulse 83, blood pressure 133/63, her O2 saturations is 97%. GENERAL APPEARANCE: A white female, appears somewhat older than her stated age, somewhat frail. HEENT: Head: Some temporal wasting present. Eyes: PERRL. Right eye appears to deviate slowly to the right. No nystagmus is present. Oral membranes are moist. NECK: She has no bruits of note. LUNGS: Sounded clear peripherally. HEART: Heart tones are distant but regular. ABDOMEN: Slightly tender midepigastric, active bowel sounds. EXTREMITIES: No pedal edema. No gross deformities. NEUROPSYCH: She is seen somewhat confused to time and date. No presence of any focal neurological signs. LABORATORY DATA AND X-RAYS: CT head imaging, no acute changes. CMS was entirely normal. CBC: White count 4.6, hemoglobin 10.5, her ANC was 2.8. Urine was clear. Chest x-ray, heart size appeared normal. ASSESSMENT: 1. Acute mental status changes. 2. Status post brain aneurysm repair, at 3 weeks. 3. Hypertension by history. 4. Anxiety. 5. History of panic attack. 6. Degenerative arthritis of the spine. 7. History of a compression fracture. 8. Recent herpes zoster infection involving the trunk. PLAN: The patient will be admitted to outpatient by the Hospitalist Service. TYREE MORALES FOR MD AMINAH SANTORO/christofer /[id number] d: 01/26/17 0116 t: 02/06/17 1204, OUTPATIENT REPORT
--- NOTE | ~2017-01-25 | DS ---
PATIENT'S NAME: RAFITA HUBER [facility] AGE: 76 Y [address] ROOM: [id number] [place], [place] [address] LOCATION: TU ADMIT DATE: 01/25/2017 Discharge Summary DISCHARGE DATE: 01/27/2017 FAMILY PHYSICIAN: Adebayo Boggs PA-C ATTENDING PHYSICIAN: Darcy Mendes DISCHARGE DIAGNOSES: 1. Acute encephalopathy. 2. Polypharmacy. 3. Essential hypertension. 4. Recent right ICA aneurysm, status post coiling. 5. Osteoporosis. 6. Recent shingles. 7. History of T8 compression fracture. HOSPITAL COURSE: Please refer to admitting history and physical as dictated by Dr. Mendes. Briefly, the patient was admitted to [facility] with confusion, anxiety, and panic. CT of the head was done, which was negative for acute ischemia or hemorrhage with interval changes of right ICA aneurysm coiling. UA was obtained, which was negative. Urine culture was negative after 2 days. During her first hospitalization night, she did have visual hallucinations and confusion. She did receive Seroquel. Her home medication list was reviewed in detail. We did start to wean her Neurontin for her history of shingles pain. Her Roxicodone, Phenergan, and tramadol were all discontinued. Her blood pressure was noted to be 160 to 180 systolically. We did start her on Norvasc 2.5 mg p.o. daily as well as hydrochlorothiazide 12.5 mg p.o. daily, which did help her hypertension. PT, OT, and ST were all consulted. Care Management did help with arrangements of Home Health Care at discharge for medication monitoring as well as vital sign monitoring. On the second hospitalization day, she had slept well. She had no further needs for Seroquel. She felt as though she was much better. No further visual hallucinations. She was up ambulatory with physical therapy without a walker. She had no further pain from her recent shingles. Her vital signs were stable. On 01/27/2017, it was felt as though she was stable to be discharged home with her and Home Health Care, PT and OT to follow. I did call and discussed the case with Dr. Cruz's nurse prior to discharge. The patient would like to see Dr. Cruz for further internal medicine needs after discharge. Appointment was scheduled for Wednesday02/01/2017 with labs at that time. LABORATORY DATA: Sodium 141, potassium 3.8 to 4.2, BUN 16 to 19, creatinine 1.0. Alkaline phosphatase 122, AST 27, ALT 23, GFR 54. TSH 1.080, free T4 1.4, folate 13.0. Vitamin B12 1679. WBCs 4.3 to 4.6, hemoglobin 9.7 to 10.5, hematocrit 28.4 to 32.0, platelets are 183 to 247. UA: Leukocytes 25, nitrites negative, protein 15, wbc's rare, epithelial rare, bacteria negative. PATIENT'S NAME: RAFITA HUBER [facility] AGE: 76 Y [address] ROOM: [id number] [place] [id number] LOCATION: [facility] ADMIT DATE: 01/25/2017 Discharge Summary DISCHARGE DATE: 01/27/2017 FAMILY PHYSICIAN: Adebayo Boggs PA-C ATTENDING PHYSICIAN: Darcy Mendes A Urine culture, no growth at 2 days. RADIOLOGY DATA: CT of the head done on 01/26/2016 showed interval change of the right ICA aneurysm coiling with no evidence of acute ischemia or hemorrhage. DISCHARGE INSTRUCTIONS: 1. The patient will be discharged to home with Home Health Care, PT and OT. 2. Diet: As tolerated. 3. Activity: As tolerated, no driving until cleared. 4. Followup appointment: With Dr. Cruz on Wednesday February 01, 2017 at 10:30 with a CBC and a BMP at that time. DISCHARGE MEDICATIONS: 1. Tylenol 500 mg p.o. every 6 hours p.r.n. pain. 2. Norvasc 2.5 mg p.o. daily, hold if systolic blood pressure is less than 110. 3. Vitamin C 500 mg p.o. daily. 4. Lipitor 40 mg p.o. q.h.s. 5. Vitamin D3 5000 units p.o. daily. 6. Vitamin B12, 1000 mcg p.o. daily. 7. Zantac 150 mg p.o. q.h.s. 8. Neurontin 200 mg daily, stop after 01/29/2017 dose, then 100 mg p.o. daily for 3 days, then discontinue. 9. Milk of magnesia 30 mL p.o. daily p.r.n. constipation. 10. Fosamax 70 mg p.o. weekly. 11. Flonase 1 spray each nostril p.r.n. 12. Tolterodine tartrate 4 mg p.o. daily. 13. Senna and docusate sodium tablet 1 tablet p.o. twice daily constipation. 14. Ipratropium albuterol nebulizer 1 vial every 4 hours as needed for wheezing or shortness of breath. 15. Hydrochlorothiazide 12.5 mg p.o. daily. Thank you for allowing us to participate in the care of this patient as she has been hospitalized at [facility]. BOYD SUÁREZ APRN FOR MD CHAYO BANDA/christofer /[id number] PATIENT'S NAME: RAFITA HUBER [facility] AGE: 76 Y [address] ROOM: [place] [address] LOCATION: [facility] ADMIT DATE: 01/25/2017 Discharge Summary DISCHARGE DATE: 01/27/2017 FAMILY PHYSICIAN: Adebayo Boggs PA-C ATTENDING PHYSICIAN: Darcy Mendes CC: Yuliana Cruz MD d: 01/28/17 0303 t: 02/09/17 0855, DISCHARGE SUMMARY
[~2017-01-25 12:27] MED LIST changes: -DUONEB INH; -HYDRODIURIL12.5 MG PO; -LIPITOR40 MG PO; -MILK OF MA400 MG/5 M PO; -NEURONTIN100 MG PO; -NORVASC2.5 MG PO; -PHENERGAN25 M1 PO; -ROXICODONE 5MG (5 MG PO; -SENNA-DOCUSATE1 EACH PO; -TOLTERODINE TART4 MG PO; -TYLENOL EXTRA500 MG PO; -VITAMIN C500 M1 PO; -VITAMIN D35000 UNI1 PO; -ZANTAC (NON-FO150 MG PO; -ZOFRAN4 MG PO
[2017-01-25 13:29] LABS: BASOPHIL % 0.4 %; EOSINOPHIL % 0.7 %; HEMOGLOBIN 10.5 g/dL (10.0-15.0); IMMATURE GRANULOCYTE % 0.9 %; LYMPHOCYTE # 1.3 K/uL (0.8-4.0); LYMPHOCYTE % 27.1 %; MCH 34.5 pg (27.0-34.0); MCHC 32.8 gm/dL (32.0-36.5); MCV 105.3 fl (83.0-98.0); MONOCYTE # 0.5 K/uL (0.0-1.0); MONOCYTE % 9.8 %; MPV 10.5 fl (9.4-12.4); NEUTROPHIL # (ANC) 2.8 K/uL (1.8-7.8); NEUTROPHIL % 61.1 %; NRBC % 0 /100WBC (0-0.00); PLATELET COUNT 247 K/uL (150-450); RBC 3.04 M/uL (3.50-5.50); RDW-CV 15.4 % (11.9-14.6); WBC 4.6 K/uL (4.0-11.0)
[2017-01-25 13:31] LABS: BILIRUBIN URINE NEGATIVE (NEGATIVE); BLOOD URINE NEGATIVE /UL (NEGATIVE); COLOR URINE YELLOW (YELLOW); GLUCOSE URINE NEGATIVE (NEGATIVE); KETONE URINE 50 mg/dL (NEGATIVE); LEUKOCYTES URINE 25 /UL (NEGATIVE); NITRITE URINE NEGATIVE (NEGATIVE); PROTEIN URINE 15 mg/dL (NEGATIVE); SPEC GRAVITY URINE 1.005 (1.003-1.035); TURBIDITY URINE CLEAR (CLEAR); UROBILINOGEN URINE NORMAL (NORMAL)
[2017-01-25 13:38] LABS: BACTERIA URINE NEGATIVE (NEGATIVE); EPITHELIAL URINE RARE #/HPF (NEGATIVE); RBC URINE NEGATIVE #/HPF (NEGATIVE); WBC URINE RARE #/HPF (NEGATIVE)
[2017-01-25 13:43] LABS: ALBUMIN 4.1 gm/dL (3.5-5.0); ANION GAP 17.2 (10.0-19.0); CALCIUM 8.9 mg/dL (8.5-10.5); POTASSIUM 4.2 mMol/L (3.7-5.1); TOTAL BILIRUBIN 0.5 mg/dL (0.0-1.5); TOTAL PROTEIN 8.1 g/dL (6.0-8.4)
[2017-01-25] MEDS ORDERED: LIPITOR40 MG PO (17:05)
[2017-01-25] MEDS ORDERED: ROXICODONE 5MG (5 MG PO (17:06)
[2017-01-25] MEDS ORDERED: ZANTAC (NON-FO150 MG PO (17:06)
[2017-01-25] MEDS ORDERED: NEURONTIN100 MG PO (17:06)
[2017-01-25] MEDS ORDERED: TOLTERODINE TART4 MG PO (17:07)
[2017-01-25] MEDS ORDERED: ZOFRAN4 MG PO (17:07)
[2017-01-25] MEDS ORDERED: VITAMIN D35000 UNI1 PO (17:08)
[2017-01-25] MEDS ORDERED: VITAMIN C500 M1 PO (17:08)
[2017-01-25] MEDS ORDERED: PHENERGAN25 M1 PO (17:08)
[2017-01-25] MEDS ORDERED: TYLENOL EXTRA500 MG PO (17:09)
[2017-01-25] MEDS ORDERED: SENNA-DOCUSATE1 EACH PO (17:09)
[2017-01-25] MEDS ORDERED: MILK OF MA400 MG/5 M PO (17:10)
--- NOTE | 2017-01-25 17:40 | NUR ---
Problems started 3-5 weeks ago with "chest pain" per the patient. Through a hospitalization it was found that she had an acute T8 compression fracture. At this same time it was coincidentally found that she had an aneurysm. The patient was sent to [facility] and had a coiling of her aneurysm in early part of this month (December 2016). Patient also had a case of shingles while hospitalized at [facility]. Patient was discharged to [facility] in [place], [place] after hospitalized. Patient was discharged from [place] last Wednesday (January 22, 2017) and sent home with . Per the , the patient was slow to respond this morning. The patient states she has been feeling anxious and claustrophoc and "nervous" for the past few days. Patient also states that for the past few weeks she has had blurred vision. Patient is asymptomatic now. Patient has history of asthma, HTN, aneurysm coiling, spinal stenosis, degenerative disk disease, irritable bowel syndrome. Patient admitted to unit with IV to R) wrist.
--- NOTE | 2017-01-26 02:07 | NUR ---
Significant Event: Alert to self. Able to tell me it is December. First assessment able to tell me she was in hospital just not sure where. Sons were at bedside pt able to make some conversation with them but not alot of the conversation made since. Pt allowed me to get her vitals but was aggitated and a little combative at this time. Called and he said to give her another 50mg of Seroquel. Pt had recieved Seroquel earlier during the night and ativan in ER. When went to give med pt was already sleeping again so medication was held and MD said to hold and give if she became aggitated again. Went in to give patient 2100 meds it took a while for me to wake her up but when I got her awake she was able to tell me that she thought she took her meds best with apple sauce and that she was in the hospital, she was able to take some drinks of water as she woke up. When more awake pt became commbative again threw her pills and refused to take any further pills or drink any water. She then wanted to go home and was convinced she was here against her will. Pt became a 1:1 at this time as she would not lay back down even though she was having a hard time keeping her eyes open. Pt would fall asleep sitting up but would be combative as soon as we tried to lay her down. Patient would be cooperative a times and allowed me to get her vitals. We were able to eventually get patient to lay down but have continued to monitor her as a 1:1. Pt has equal strength throughout. Up 1-2 assist. VSS. On telel SR. RA lungs clear. Low sodium diet. IV to R) wrist SL. Denies pain. Pt is in a highlow bed. Follow up:
[2017-01-26 05:21] LABS: BASOPHIL % 0.9 %; EOSINOPHIL # 0.2 K/uL (0.0-0.5); EOSINOPHIL % 4.3 %; HEMATOCRIT 30.3 % (33.0-46.0); HEMOGLOBIN 9.9 g/dL (10.0-15.0); IMMATURE GRANULOCYTE % 0.7 %; LYMPHOCYTE % 44.8 %; MCH 34.7 pg (27.0-34.0); MCHC 32.7 gm/dL (32.0-36.5); MCV 106.3 fl (83.0-98.0); MONOCYTE # 0.6 K/uL (0.0-1.0); MONOCYTE % 12.3 %; MPV 10.5 fl (9.4-12.4); NEUTROPHIL # (ANC) 1.7 K/uL (1.8-7.8); NRBC % 0 /100WBC (0-0.00); RBC 2.85 M/uL (3.50-5.50); RDW-CV 15.7 % (11.9-14.6); WBC 4.5 K/uL (4.0-11.0)
[2017-01-26 05:37] LABS: PLATELET COUNT 183 K/uL (150-450)
[2017-01-26 05:45] LABS: CALCIUM 8.6 mg/dL (8.5-10.5)
[2017-01-26] MEDS ORDERED: DUONEB INH (14:19)
[2017-01-26] MEDS ORDERED: HYDRODIURIL12.5 MG PO (14:21)
--- NOTE | 2017-01-26 15:17 | NUR ---
Introduced self and CM role to Henna and her . Henna tells me that she was just recently dismissed from [facility] in [place] and when she went home, she was on a bunch of new medications so she thinks that that could be one of the reasons why all this happened. Per her , she is back to baseline and is looking "a lot better from when we brought her in the other morning." I visited with her about returning back home when she is ready to leave here. Hnena tells me that she is fine with going home, she has a FWW to use if she needs it. I talked with both her and her about the recommendation for [facility]. They are both open and in agreement to her going home with [facility]. They would like for [facility] out of [place] to follow when dismissed. I let them know I would call over and start the referral process today and then once she leaves, make sure that orders are faxed to them as well. Henna's will be able to take her home when she is dismissed. No other questions, needs or concerns from Henna or her . I placed a F2F on the chart for MD to fill out so she can have [facility]. I also called/faxed in initial referral information to Jennifer at [facility]. phone [phone] fax [phone]. Let her know that I would contact her tomorrow when Henna dismissed and fax her over orders as well. Will continue to follow and assist. Plan home with [facility].
--- NOTE | 2017-01-26 16:56 | NUR ---
Significant Event: Upon first assessment patient was very confused. Didn't know how she got here. However, upon third assessment patient was alert and oriented x3. Hypertensive, all other VSS. Norvasc started. Voids per bathroom. Midline IV started to L) upper arm, limb alert bracelet placed. Follow up: VS/neuros q 4 hours. Up with 1PA. Low sodium diet.
--- NOTE | 2017-01-27 02:07 | NUR ---
Significant Event: A&OX3. Follows commands cooperative with with cares. Up 1 assist GBW to SBA. On tele SR. VSS. RA lungs clear. Low Sodium diet. Midline to L) upper arm SL. Denies pain. Is on scheduled tylenol. Pt is working with PT and OT. Takes meds 1-2 at a time whole in water. Follow up: Possible discharge home today.
[2017-01-27 04:11] LABS: BASOPHIL % 0.9 %; EOSINOPHIL # 0.3 K/uL (0.0-0.5); EOSINOPHIL % 6.2 %; HEMATOCRIT 28.4 % (33.0-46.0); HEMOGLOBIN 9.7 g/dL (10.0-15.0); IMMATURE GRANULOCYTE % 0.5 %; LYMPHOCYTE % 45.3 %; MCHC 34.2 gm/dL (32.0-36.5); MCV 102.5 fl (83.0-98.0); MONOCYTE # 0.5 K/uL (0.0-1.0); MONOCYTE % 11.3 %; MPV 10.3 fl (9.4-12.4); NEUTROPHIL # (ANC) 1.6 K/uL (1.8-7.8); NEUTROPHIL % 35.8 %; NRBC % 0 /100WBC (0-0.00); RBC 2.77 M/uL (3.50-5.50); RDW-CV 15.8 % (11.9-14.6); WBC 4.3 K/uL (4.0-11.0)
[2017-01-27 04:20] LABS: PLATELET COUNT 235 K/uL (150-450)
[2017-01-27 04:26] LABS: ANION GAP 12.8 (10.0-19.0); CALCIUM 8.6 mg/dL (8.5-10.5); POTASSIUM 3.8 mMol/L (3.7-5.1)
[2017-01-27] MEDS ORDERED: NORVASC2.5 MG PO (11:12)
--- NOTE | 2017-01-27 11:27 | NUR ---
Significant Event: A/O X3. Denies N/T. Follows commands. Moves everything spontaneously. Unsteady at times. VSS. Afebrile. Room air with sats in the mid 90s. LS clear throughout. Low Na+ diet. Takes pills whole with water. Large BM this shift. BS active X4. Generalized bruising. Midline to KIM. D/Cd prior to discharge. 1 assist with gaitbelt and walker. Scheduled tylenol given for pain. Pleasant and cooperative with cares. Family at bedside. Awaiting MD to round to give final approval on discharge. Follow up:
--- NOTE | 2017-01-27 13:21 | NUR ---
Social visit with Henna and her this morning. They are in agreement with going home with [facility] today. I let them know that I would fax orders over to [facility] so they could come and assess/help her tomorrow. They were fine with this. Both myself and Jeanie on U faxed over dismissal paperwork and C F2F to [facility] prior to Henna leaving. No other questions, needs or concerns. Will continue to follow and assist. Plan home with [facility].
== END 2017-01-27 13:38 | disposition disaster alternative care site (69) ==
LOC: GMED 12:27 → GNTU 15:13
PROVIDERS: Family Medicine; Nurse Practitioner Family; ADMIT Internal Medicine
DX: G93.40 Encephalopathy, unspecified (principal); I10 Essential (primary) hypertension; M81.0 Age-related osteoporosis without current pathological fracture; R32 Unspecified urinary incontinence; Z87.311 Personal history of (healed) other pathological fracture; Z98.890 Other specified postprocedural states
CPT/HCPCS: C1751; G0378; G8978; G8979; G8980; G9159; G9160; G9161; J7120

== ENCOUNTER → 2017-01-25 | Outpatient (CLI) | payer MEDICARE, OTHER ==
[~2017-01-25] MED LIST: DUONEB INH; FLONASE 50 MCG/16 GM NOSE; FOSAMAX70 MG PO; HYDRODIURIL12.5 MG PO; LIPITOR40 MG PO; MILK OF MA400 MG/5 M PO; NEURONTIN100 MG PO; NORVASC2.5 MG PO; PHENERGAN25 M1 PO; ROXICODONE 5MG (5 MG PO; SANCTURA 20MG20 MG PO; SENNA-DOCUSATE1 EACH PO; TOLTERODINE TART4 MG PO; TYLENOL EXTRA500 MG PO; ULTRAM50 MG PO; VITAMIN B-121000 MCG PO; VITAMIN C500 M1 PO; VITAMIN D35000 UNI1 PO; ZANTAC (NON-FO150 MG PO; ZOFRAN4 MG PO
== END | disposition disaster alternative care site (69) ==
LOC: GAMB 11:47
DX: F41.9 Anxiety disorder, unspecified (principal); F60.4 Histrionic personality disorder; R11.0 Nausea; R53.1 Weakness; Z79.891 Long term (current) use of opiate analgesic; Z79.899 Other long term (current) drug therapy; Z88.1 Allergy status to other antibiotic agents; Z88.6 Allergy status to analgesic agent